=== PATIENT | female | born 1990 | race Hispanic/Latino ===

== ENCOUNTER 2021-08-03 18:40 | Emergency (ER) | payer MEDICAID ==
[~2021-08-03] VITALS: Ht 165.1 cm; Wt 84.4 kg
[2021-08-03] MEDS ORDERED: ACETAMINOPHEN WITH CODEINE 1 TAB TAB PO ONE (19:30)
[2021-08-03 19:56] LABS: BASOPHILS % (AUTO) 0.2 % (0.0-5.0); HEMATOCRIT 40.3 % (36-48); LYMPHOCYTES % (AUTO) 7.6 % (21.0-51.0); MEAN CORPUSCULAR HEMOGLOBIN 28.2 pg (27.0-33.0); MEAN CORPUSCULAR HGB CONC 32.8 g/dL (32.0-36.0); MEAN CORPUSCULAR VOLUME 86.1 fL (79-99); MONOCYTES % (AUTO) 1.9 % (3.0-13.0); PLATELET COUNT (AUTO) 188 K/uL (130-400); RED BLOOD CELL COUNT(AUTO) 4.68 MIL/uL (4.00-5.50); WHITE BLOOD COUNT (AUTO) 6.4 K/uL (4.8-10.8)
[2021-08-03] MEDS ORDERED: 0.9%NACL 1000ML 1,000 ML IV ONE ×2 (20:00→20:15)
[2021-08-03] MEDS ORDERED: AZITHROMYCIN 250 MG TABLET PO ONE ×2 (20:00→21:23)
[2021-08-03] MEDS ORDERED: CEFTRIAXONE 1G VIAL IV ONE (20:00)
[2021-08-03 20:06] LABS: POTASSIUM 4.2 mmol/L (3.5-5.1)
[2021-08-03 20:13] LABS: ALBUMIN 3.2 g/dL (3.5-5.0); BILIRUBIN,TOTAL 0.1 mg/dL (0.2-1.0); TOTAL PROTEIN, SERUM 7.7 g/dL (6.0-8.3)
[2021-08-03] MEDS ORDERED: ACETAMINOPHEN WITH CODEINE 1 TAB TAB ONE (20:14)
[2021-08-03] MEDS ORDERED: CEFTRIAXONE 1G VIAL ONE (20:14)
[2021-08-03 21:23] LABS: APPEARANCE,URINE Clear (CLEAR); BILIRUBIN,URINE Negative (NEGATIVE); COLOR,URINE Yellow (YELLOW); GLUCOSE, URINE (UA) >=1000 mg/dL (NEGATIVE); KETONES,URINE Trace mg/dL (NEGATIVE); LEUKOCYTE ESTERASE ,URINE Small (NEGATIVE); NITRATE,URINE Negative (NEGATIVE); OCCULT BLOOD,URINE Negative (NEGATIVE); PROTEIN,URINE Negative (NEGATIVE); UROBILINOGEN,URINE 0.2 mg/dL (0.2-1.0)
[2021-08-03 21:35] LABS: HCG,QUAL RESULT NEGATIVE (NEGATIVE)
[2021-08-03 21:37] LABS: BACTERIA,URINE Few /HPF (None Seen); RBC,URINE 0-1 /HPF (0-1); SQUAMOUS EPITHELIAL CELL,UR Few /HPF (0-2)
[2021-08-03] MEDS ORDERED: NAPR500T6 PO (22:29)
[2021-08-03] MEDS ORDERED: DOXY-336 PO (22:29)
[2021-08-03] MEDS ORDERED: METR-172 PO (22:29)
[2021-08-03 22:52] VITALS: BP 118/79
== END 2021-08-03 23:10 | disposition home or self-care (01) ==
LOC: EDH 18:40
DX: N73.0 Acute parametritis and pelvic cellulitis (principal); E11.9 Type 2 diabetes mellitus without complications; Z79.899 Other long term (current) drug therapy
CPT/HCPCS: 36415; 76856; 80053; 81001; 81025; 85025; 87088; 87210; 87486; 87529; 87797; 96361; 96374; 99284; J0696; J7030

== ENCOUNTER 2021-08-06 09:18 | Emergency (ER) | payer MEDICAID, OTHER ==
[~2021-08-06] VITALS: Ht 165.1 cm; Wt 83.9 kg
[~2021-08-06 09:18] MED LIST: DOXY-336 PO; METR-172 PO; NAPR500T6 PO
[2021-08-06 09:19] VITALS: BP 117/68
[2021-08-06] MEDS ORDERED: ACETAMINOPHEN 500 MG TABLET PO ONE (13:00)
[2021-08-06] MEDS ORDERED: FAMC250T PO (13:03)
== END 2021-08-06 13:52 | disposition home or self-care (01) ==
LOC: EDH 09:18
DX: A60.09 Herpesviral infection of other urogenital tract (principal); Z79.1 Long term (current) use of non-steroidal anti-inflammatories (NSAID)